=== PATIENT | female | born 1960 | race Caucasian/White ===

== ENCOUNTER 2017-03-20 14:46 | Emergency (ER) | payer OTHER ==
[~2017-03-20] VITALS: Ht 167.6 cm; Wt 70.0 kg
[~2017-03-20 14:46] MED LIST: ACET500T13 PO; ALBU4TAB4 PO; ALBUAER3 INH; ALPR0.5T3 PO; AMLO5TAB2 PO; ATOR1TAB18 PO; CYAN100025 SL; FURO20TA PO; HYDR-3801 PO; LISI-515 PO; TRAZ100T6 PO
[2017-03-20 15:14] VITALS: BP 121/80; PULSE 114; RESP 25; TEMP 98.5; O2SAT 98
--- NOTE | 2017-03-20 15:23 | PD ---
HPI Chief Complaint: psychiatric symptoms Time Seen by Provider: 15:16 Travel History International Travel<30 days: No Contact w/Intl Traveler<30days: No History of Present Illness HPI 56-year-old female presents to the emergency department under [email or web address] act for psychiatric evaluation. According the [email or web address] act, the patient sent a text message to her ex-boyfriend stating that she was going to take a bunch of pills. The patient admits to significant Aztecs. She states she just wanted him to worry. She states that she had no intention of ever trying to kill herself. She states she only sent it out of anger. Patient denies any current suicidal or homicidal ideation. She states that she did try to kill herself approximately 16 years ago when her son . She did this by taking a bunch of pills. Patient reports history of COPD, hypertension, asthma, thoracic aneurysm. She is requesting a respiratory treatment, DuoNeb. The patient also states that she feels anxious. PFSH Social History Alcohol Use: No Tobacco Use: Yes Substance Use: No Allergies-Medications (Allergen,Severity, Reaction): Coded Allergies: clonidine (Verified Allergy, Severe, 03/08/17) naproxen (Verified Allergy, Severe, 03/08/17) codeine (Verified Allergy, Mild, 03/08/17) Reported Meds & Prescriptions Reported Meds & Active Scripts Active Reported Lisinopril 20 Mg Tab 20 Mg PO DAILY Trazodone (Trazodone HCl) 100 Mg Tablet 100 Mg PO HS Furosemide 20 Mg Tab 20 Mg PO DAILY Hydralazine (Hydralazine HCl) 100 Mg Tab 100 Mg PO BID Take with meals B-12 (Cyanocobalamin) 1,000 Mcg Subl 1,000 Mcg SL DAILY Atorvastatin (Atorvastatin Calcium) 80 Mg Tab 80 Mg PO HS Amlodipine (Amlodipine Besylate) 5 Mg Tab 5 Mg PO DAILY Alprazolam 0.5 Mg Tab 0.5 Mg PO Q8H PRN Proair Hfa 8.5 GM Inh (Albuterol Sulfate) 90 Mcg/Act Aer 2 Puff INH Q6H PRN 108 mcg/actuation Albuterol (Albuterol Sulfate) 4 Mg Tab 4 Mg PO TID Review of Systems Except as stated in HPI: all other systems reviewed are Neg Physical Exam Narrative GENERAL: Well-nourished, well-developed female patient, ambulatory. Afebrile SKIN: Focused skin assessment warm/dry. HEAD: Normocephalic. Atraumatic. EYES: No scleral icterus. No injection or drainage. NECK: Supple, trachea midline. No JVD or lymphadenopathy. CARDIOVASCULAR: Regular rate and rhythm without murmurs, gallops, or rubs. RESPIRATORY: Breath sounds equal bilaterally. No accessory muscle use. Lungs sounds are clear to auscultation GASTROINTESTINAL: Abdomen soft, non-tender, nondistended. MUSCULOSKELETAL: No cyanosis, or edema. PSYCHIATRIC: No delusional thought processes. No hallucinations. Data Data Last Documented VS Vital Signs Date Time Temp Pulse Resp B/P (MAP) Pulse Ox O2 Delivery O2 Flow Rate FiO2 03/20/17 15:23 114 25 98 Room Air 03/20/17 15:14 98.5 121/80 (94) Orders Orders Complete Blood Count With Diff (03/20/17 15:16) Comprehensive Metabolic Panel (03/20/17 15:16) Psych Screen (03/20/17 15:16) Drug Screen, Random Urine (03/20/17 15:16) Alcohol (Ethanol) (03/20/17 15:16) Salicylates (Aspirin) (03/20/17 15:16) Tylenol (Acetaminophen) (03/20/17 15:16) Albuterol-Ipratropium Neb (Duoneb Neb) (03/20/17 15:30) Potassium Chloride (Kcl) (03/20/17 16:45) Labs Laboratory Tests Test 03/20/17 15:40 White Blood Count 9.6 TH/MM3 Red Blood Count 4.83 MIL/MM3 Hemoglobin 14.4 GM/DL Hematocrit 42.8 % Mean Corpuscular Volume 88.6 FL Mean Corpuscular Hemoglobin 29.9 PG Mean Corpuscular Hemoglobin Concent 33.8 % Red Cell Distribution Width 14.2 % Platelet Count 304 TH/MM3 Mean Platelet Volume 8.6 FL Neutrophils (%) (Auto) 73.4 % Lymphocytes (%) (Auto) 20.4 % Monocytes (%) (Auto) 3.6 % Eosinophils (%) (Auto) 1.5 % Basophils (%) (Auto) 1.1 % Neutrophils # (Auto) 7.0 TH/MM3 Lymphocytes # (Auto) 2.0 TH/MM3 Monocytes # (Auto) 0.4 TH/MM3 Eosinophils # (Auto) 0.1 TH/MM3 Basophils # (Auto) 0.1 TH/MM3 CBC Comment DIFF FINAL Differential Comment Blood Urea Nitrogen 6 MG/DL Creatinine 0.95 MG/DL Random Glucose 101 MG/DL Total Protein 7.6 GM/DL Albumin 4.0 GM/DL Calcium Level 9.5 MG/DL Alkaline Phosphatase 92 U/L Aspartate Amino Transf (AST/SGOT) 13 U/L Alanine Aminotransferase (ALT/SGPT) 19 U/L Total Bilirubin 0.4 MG/DL Sodium Level 140 MEQ/L Potassium Level 3.0 MEQ/L Chloride Level 104 MEQ/L Carbon Dioxide Level 25.8 MEQ/L Anion Gap 10 MEQ/L Estimat Glomerular Filtration Rate 60 ML/MIN Salicylates Level 5.9 MG/DL Acetaminophen Level LESS THAN 2.0 MCG/ML Ethyl Alcohol Level LESS THAN 3 MG/DL MDM Medical Decision Making Medical Screen Exam Complete: Yes Emergency Medical Condition: Yes Medical Record Reviewed: Yes Differential Diagnosis Depression versus anxiety versus medical clearance versus suicidal ideation Narrative Course 56-year-old female presents to the emergency Department under [employer] act by local police after she sent a text message to her ex-boyfriend threatening to kill herself by taking pills. Patient denies any current suicidal ideation and denies trying to hurt herself in anyway. CBC, CMP, alcohol level, urine drug screen, salicylate level, Tylenol level are ordered and pending. Patient is given duoneb x1 per her request. CBC shows no acute abnormality. CMP shows hypokalemia of 3.0. Alcohol level is less than 3. UDS is still pending. Salicylate level is 5.9. Tylenol level is less than 2.0. Patient is given potassium 40 mEq by mouth. Patient is medically cleared for psychiatric screening and disposition. Mental health screening discussed with the patient. Psychiatric screen ordered. Diagnosis Primary Impression: Depression Qualified Codes: F32.9 - Major depressive disorder, single episode, unspecified Condition: Stable Ruth Vizcarra SARITHA Mar 20, 2017 15:23
[2017-03-20] MEDS ORDERED: RESP: ALBUTEROL 2.5 MG/IPRATROPIUM 0.5 MG NEB (SCH) INH ONE (15:30)
[2017-03-20 15:54] LABS: BASOPHIL # 0.1 TH/MM3 (0-0.2); BASOPHIL % 1.1 % (0.0-2.0); EOSINOPHIL # 0.1 TH/MM3 (0-0.4); EOSINOPHIL % 1.5 % (0.0-4.0); HEMATOCRIT 42.8 % (35.0-46.0); HEMO FLAGS DIFF FINAL; LYMPH % 20.4 % (9.0-44.0); MEAN CELL VOLUME 88.6 FL (80.0-100.0); MEAN CORPUSCULAR HEMOGLOBIN 29.9 PG (27.0-34.0); MEAN CORPUSCULAR HGB CONC 33.8 % (32.0-36.0); MONO % 3.6 % (0.0-8.0); NEUT % 73.4 % (16.0-70.0); PLATELET COUNT 304 TH/MM3 (150-450); RED BLOOD COUNT 4.83 MIL/MM3 (4.00-5.30); RED CELL DISTRIBUTION WIDTH 14.2 % (11.6-17.2); WHITE BLOOD COUNT 9.6 TH/MM3 (4.0-11.0)
[2017-03-20 16:15] LABS: ANION GAP 10 MEQ/L (5-15); BICARBONATE 25.8 MEQ/L (21.0-32.0); BLOOD UREA NITROGEN 6 MG/DL (7-18); CHLORIDE 104 MEQ/L (98-107); GLOMERULAR FILTRATION RATE 60 ML/MIN (>89); SODIUM (NA) 140 MEQ/L (136-145)
[2017-03-20 16:16] LABS: AST (GOT) 13 U/L (15-37)
[2017-03-20 16:18] LABS: ACETAMINOPHEN LESS THAN 2.0 MCG/ML (10.0-30.0); ALKALINE PHOSPHATASE 92 U/L (45-117); ALT (GPT) 19 U/L (10-53); TOTAL BILIRUBIN ADULT 0.4 MG/DL (0.2-1.0)
[2017-03-20 16:20] LABS: ALCOHOL LESS THAN 3 MG/DL (0-5)
[2017-03-20] MEDS ORDERED: POTASSIUM CHLORIDE 20 MEQ CONTROLLED RELEASE TAB PO ONE (16:45)
[2017-03-20 18:00] VITALS: BP 165/85; PULSE 90; RESP 18; O2SAT 98
[2017-03-20] MEDS ORDERED: hydrALAZINE HCL 100 MG TAB PO ONE (18:45)
[2017-03-20 20:00] VITALS: BP 154/96; PULSE 87; RESP 15; O2SAT 100
[2017-03-20 21:16] VITALS: PULSE 90; RESP 18; O2SAT 97
[2017-03-20] MEDS ORDERED: RESP: ALBUTEROL 2.5 MG/IPRATROPIUM 0.5 MG NEB (PRN) NEB (22:30)
[2017-03-21 02:49] VITALS: BP 142/81; PULSE 82; RESP 18; O2SAT 97
[2017-03-21 06:25] VITALS: BP 154/101; PULSE 70; RESP 18; O2SAT 98
[2017-03-21] MEDS ORDERED: RESP: ALBUTEROL 2.5 MG/IPRATROPIUM 0.5 MG NEB (SCH) INH ONE (09:15)
--- NOTE | 2017-03-21 10:14 | PD ---
Physical Exam Time Seen by Provider: 10:[address] Narayanan has evaluated the patient, lifted the [employer] act and cleared the patient for discharge. I was called previously for a DuoNeb for the patient. She has history of COPD. She was wheezing and had some chest tightness and shortness of breath. 1010: I evaluated the patient after the DuoNeb. She said that her breathing treatments had gotten off course and she had been admitted to the ER causing her COPD flareup. She denies any recent illness. She denies chest tightness or shortness of breath at this time. Lung sounds are clear and equal throughout. She is in no acute acute distress without retractions or tachypnea. She says she has plenty of inhalers including treatments at home. She also has history of hypertension and has medications at home that she can take when she gets there. Patient is comfortable with discharge home. Data Data Last Documented VS Vital Signs Date Time Temp Pulse Resp B/P (MAP) Pulse Ox O2 Delivery O2 Flow Rate FiO2 03/21/17 06:25 70 18 154/101 (118) 98 Room Air 03/20/17 15:14 98.5 Orders Orders Complete Blood Count With Diff (03/20/17 15:16) Comprehensive Metabolic Panel (03/20/17 15:16) Psych Screen (03/20/17 15:16) Drug Screen, Random Urine (03/20/17 15:16) Alcohol (Ethanol) (03/20/17 15:16) Salicylates (Aspirin) (03/20/17 15:16) Tylenol (Acetaminophen) (03/20/17 15:16) Albuterol-Ipratropium Neb (Duoneb Neb) (03/20/17 15:30) Potassium Chloride (Kcl) (03/20/17 16:45) Hydralazine (Apresoline) (03/20/17 18:45) Diet Heart Healthy (03/20/17 Dinner) Albuterol-Ipratropium Neb (Duoneb Neb) (03/20/17 22:30) Diet Regular Basic (03/21/17 Breakfast) Albuterol-Ipratropium Neb (Duoneb Neb) (03/21/17 09:15) Labs Laboratory Tests Test 03/20/17 15:40 10/14/17 16:40 White Blood Count 9.6 TH/MM3 Red Blood Count 4.83 MIL/MM3 Hemoglobin 14.4 GM/DL Hematocrit 42.8 % Mean Corpuscular Volume 88.6 FL Mean Corpuscular Hemoglobin 29.9 PG Mean Corpuscular Hemoglobin Concent 33.8 % Red Cell Distribution Width 14.2 % Platelet Count 304 TH/MM3 Mean Platelet Volume 8.6 FL Neutrophils (%) (Auto) 73.4 % Lymphocytes (%) (Auto) 20.4 % Monocytes (%) (Auto) 3.6 % Eosinophils (%) (Auto) 1.5 % Basophils (%) (Auto) 1.1 % Neutrophils # (Auto) 7.0 TH/MM3 Lymphocytes # (Auto) 2.0 TH/MM3 Monocytes # (Auto) 0.4 TH/MM3 Eosinophils # (Auto) 0.1 TH/MM3 Basophils # (Auto) 0.1 TH/MM3 CBC Comment DIFF FINAL Differential Comment Blood Urea Nitrogen 6 MG/DL Creatinine 0.95 MG/DL Random Glucose 101 MG/DL Total Protein 7.6 GM/DL Albumin 4.0 GM/DL Calcium Level 9.5 MG/DL Alkaline Phosphatase 92 U/L Aspartate Amino Transf (AST/SGOT) 13 U/L Alanine Aminotransferase (ALT/SGPT) 19 U/L Total Bilirubin 0.4 MG/DL Sodium Level 140 MEQ/L Potassium Level 3.0 MEQ/L Chloride Level 104 MEQ/L Carbon Dioxide Level 25.8 MEQ/L Anion Gap 10 MEQ/L Estimat Glomerular Filtration Rate 60 ML/MIN Salicylates Level 5.9 MG/DL Acetaminophen Level LESS THAN 2.0 MCG/ML Ethyl Alcohol Level LESS THAN 3 MG/DL Urine Opiates Screen NEG Urine Barbiturates Screen NEG Urine Amphetamines Screen NEG Urine Benzodiazepines Screen POS Urine Cocaine Screen NEG Urine Cannabinoids Screen NEG MDM Supervised Visit with JOHANA: No Narrative Course Dr. Thomas has evaluated the patient, lifted the [employer] act, and cleared the patient for discharge.. Patient contracts safety. Denies suicidal or homicidal ideations. Patient will be provided community resource packet to [facility]/ [facility] for follow-up. Has friends and family for support. Patient is medically cleared for discharge. Diagnosis Primary Impression: Depression Qualified Codes: F32.9 - Major depressive disorder, single episode, unspecified Referrals: [facility] (Out patient) [facility] Primary Care Physician Psychiatrist Estefani [facility] Patient Instructions: Depression (ED), General Instructions Additional Instruction: Contract safety to your self and others Follow-up with psychiatry Follow-up with primary care provider Follow-up with Juan Miguel Perez Return to the emergency department immediately with worsening of symptoms Med/Other Pt SpecificInfo: No Change to Meds, No Meds Exist/No RX given Disposition: 01 DISCHARGE HOME Condition: Stable Staci Wells Mar 21, 2017 10:14
--- NOTE | 2017-03-21 16:09 | PD.PSY.CON ---
Provisional Diagnosis Admission Date [place] I. Adjustment disorder with depressed mood, history of anxiety and depression [place] II. Deferred [place] III. COPD, asthma, hypertension History of Present Illness Service Psychiatry Consult Requested By Reason for Consult Suicidal ideation Primary Care Physician Marcellus Camarillo MD HPI The patient is a 56-year-old woman, domiciled in [place], unemployed , , on SSI, with psychiatric history of anxiety and depression, 1 previous psychiatric hospitalization, one previous suicidal attempt by overdosing about 16 years ago, medical history of COPD, asthma, hypertension, who presents to the emergency department under [employer] act for psychiatric evaluation. According the [employer] act, the patient sent a text message to her ex- boyfriend stating that she was going to take a bunch of pills. She states she just wanted him to worry. She states that she had no intention of ever trying to kill herself. She states she only sent it out of anger and she did not mean to kill herself. She denies depressive symptoms, she denies anxiety, she denies psychotic symptoms. Patient denies any current suicidal or homicidal ideation. She is oriented by 3, no gross cognitive impairment present. Review of Systems Constitutional: DENIES: Diaphoretic episodes, Fatigue, Fever, Weight gain, Weight loss, Chills, Dizziness, Change in appetite, Night Sweats Endocrine: DENIES: Abnorml menstrual pattern, Heat/cold intolerance, Polydipsia , Polyuria, Polyphagia Eyes: DENIES: Blurred vision, Diplopia, Eye inflammation, Eye pain, Vision loss , Photosensitivity, Double Vision Ears, nose, mouth, throat: DENIES: Tinnitus, Hearing loss, Vertigo, Nasal discharge, Oral lesions, Throat pain, Hoarseness, Ear Pain, Running Nose, Epistaxis, Sinus Pain, Toothache, Odynophagia Respiratory: DENIES: Apneas, Cough, Snoring, Wheezing, Hemoptysis, Sputum production, Shortness of breath Cardiovascular: DENIES: Chest pain, Palpitations, Syncope, Dyspnea on Exertion , PND, Lower Extremity Edema, Orthopnea, Claudication Gastrointestinal: DENIES: Abdominal pain, Black stools, Bloody stools, Constipation, Diarrhea, Nausea, Vomiting, Difficulty Swallowing, Anorexia Genitourinary: DENIES: Abnormal vaginal bleeding, Dysmenorrhea, Dyspareunia, Sexual dysfunction, Urinary frequency, Urinary incontinence, Urgency, Hematuria , Dysuria, Nocturia, Vaginal discharge Musculoskeletal: DENIES: Joint pain, Muscle aches, Stiffness, Joint Swelling, Back pain, Neck pain Integumentary: DENIES: Abnormal pigmentation, Pruritus, Rash, Nail changes, Breast masses, Breast skin changes, Nipple discharge Hematologic/lymphatic: DENIES: Bruising, Lymphadenopathy Immunologic/allergic: DENIES: Eczema, Urticaria Neurologic: DENIES: Abnormal gait, Headache, Localized weakness, Paresthesias, Seizures, Speech Problems, Tremor, Poor Balance Psychiatric: DENIES: Anxiety, Confusion, Mood changes, Depression, Hallucinations, Agitation, Suicidal Ideation, Homicidal Ideation, Delusions Past Family Social History Coded Allergies: clonidine (Verified Allergy, Severe, 03/20/17) naproxen (Verified Allergy, Severe, 03/20/17) codeine (Verified Allergy, Mild, 03/20/17) Reported Medications Acetaminophen (APAP Extra Strength) 500 Mg Tab, 500 MG PO Q4-6H Y for PAIN SCALE 1 TO 10, TAB 01/19/17 Lisinopril (Lisinopril) 20 Mg Tab, 20 MG PO DAILY, #30 TAB 0 Refills 01/19/17 Trazodone (Trazodone) 100 Mg Tablet, 100 MG PO HS for Control Depression, #30 TAB 0 Refills 01/19/17 Furosemide (Furosemide) 20 Mg Tab, 20 MG PO DAILY, #30 TAB 0 Refills 01/19/17 Hydralazine (Hydralazine) 100 Mg Tab, 100 MG PO BID for Blood Pressure Management, TAB 0 Refills Take with meals 01/19/17 Cyanocobalamin (B-12) 1,000 Mcg Subl, 1000 MCG SL DAILY for Nutritional Supplement, TAB.SL 0 Refills 01/19/17 Atorvastatin (Atorvastatin) 80 Mg Tab, 80 MG PO HS for Cholesterol Management, # 30 TAB 0 Refills 01/19/17 Amlodipine (Amlodipine) 5 Mg Tab, 5 MG PO DAILY for Blood Pressure Management, # 30 TAB 0 Refills 01/19/17 Alprazolam (Alprazolam) 0.5 Mg Tab, 0.5 MG PO Q8H Y for ANXIETY, TAB 0 Refills 01/19/17 Albuterol 8.5 GM Inh (Proair Hfa 8.5 GM Inh) 90 Mcg/Act Aer, 2 PUFF INH Q6H Y for SHORTNESS OF BREATH, #1 INHALER 0 Refills 108 mcg/actuation 01/19/17 Albuterol (Albuterol) 4 Mg Tab, 4 MG PO TID for Asthma Management, #90 TAB 0 Refills 01/19/17 Social History Patient was born and raised in [place], she lives in [place], she is , unemployed, on SSI, her highest level of education is 12th grade Patient's Strengths (min. 2) Verbal Physical Exam Vital Signs Vital Signs Date Time Temp Pulse Resp B/P (MAP) Pulse Ox O2 Delivery O2 Flow Rate FiO2 03/21/17 11:23 03/21/17 06:25 70 18 98 Room Air 03/20/17 15:14 98.5 Lab Results Test 03/20/17 16:40 Urine Opiates Screen NEG Urine Barbiturates Screen NEG Urine Amphetamines Screen NEG Urine Benzodiazepines Screen POS Urine Cocaine Screen NEG Urine Cannabinoids Screen NEG Mental Status Examination Appearance: Appropriate Consciousness: Alert Orientation: x4 Motor Activity: Normal gait Speech: Unremarkable Language: Adequate Fund of Knowledge: Adequate Attention and Concentration: Adequate Memory: Unremarkable Mood: Appropriate Affect: Appropriate Thought Process & Associations: Intact Thought Content: Appropriate Hallucination Type: None Delusion Type: None Suicidal Ideation: No Suicidal Plan: No Suicidal Intention: No Homicidal Ideation: No Homicidal Plan: No Homicidal Intention: No Insight: Adequate Judgment: Adequate Assessment & Plan Problem List: (1) Adjustment disorder with depressed mood ICD Codes: F43.21 - Adjustment disorder with depressed mood Assessment & Plan: At the moment of this evaluation the patient does not present any significant evidence of depression, anxiety, shahnaz or psychosis. Patient denies suicidal and homicidal ideation, she denies visual and auditory hallucinations. Apparently her recent suicidal statement to her boyfriend by text was influenced by anger and frustration and with the intention to manipulate. She does not meet criteria for psychiatric admission at this moment. Support, motivation psycho education provided. Mala at will be lifted. Assessment & Plan Estimated LOS: Jason Eubanks MD Mar 21, 2017 16:09
== END 2017-03-21 11:38 | disposition home or self-care (01) ==
LOC: NEPE 14:46 → NEPJ 03-21 11:38
DX: F32.9 Major depressive disorder, single episode, unspecified (principal); F17.200 Nicotine dependence, unspecified, uncomplicated; J44.9 Chronic obstructive pulmonary disease, unspecified; J45.909 Unspecified asthma, uncomplicated; I10 Essential (primary) hypertension; Z79.899 Other long term (current) drug therapy; I71.2 Thoracic aortic aneurysm, without rupture
CPT/HCPCS: 80053; 80307; 85025; 94640; 94664; 99283